=== PATIENT | female | born 1980 | race Caucasian/White ===

== ENCOUNTER 2024-04-09 17:51 | Emergency (ER) | payer BC ==
[2024-04-09 18:01] VITALS: BP 132/86; PULSE 88; RESP 18; TEMP 98.5; BMI 29.5
== END 2024-04-09 20:14 | disposition left against medical advice (07) ==
LOC: JER 17:51 → JERFT 17:51
DX: M79.18 Myalgia, other site (principal)
CPT/HCPCS: 99281-25